=== PATIENT | female | born 1970 | race Caucasian/White ===

== ENCOUNTER 2018-02-03 05:37 | Emergency (ER) | payer OTHER ==
[~2018-02-03] VITALS: Ht 167.6 cm; Wt 99.8 kg
--- NOTE | ~2018-02-03 | EKG ---
[place] [address] [facility] [place] [address] ELECTROCARDIOGRAM REPORT Name: STEVIE HERNANDEZ Room #: 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
[2018-02-03] MEDS ORDERED: TOPAMAX 100 MG100 MG PO (05:55)
[2018-02-03] MEDS ORDERED: ROBAXIN 750 MG750 M1 PO (05:55)
[2018-02-03] MEDS ORDERED: BUSPIRONE HCL10 MG PO (05:56)
[2018-02-03] MEDS ORDERED: WELLBUTRIN SR100 MG PO (05:56)
[2018-02-03] MEDS ORDERED: TRAZODONE HCL100 MG PO (05:57)
[2018-02-03] MEDS ORDERED: ZOLOFT50 MG PO (05:57)
[2018-02-03 07:31] LABS: ABSOLUTE NEUTROPHILS 5.9 thou/uL (1.4-8.2); EOSINOPHILS 2.4 % (0.0-3.0); HEMATOCRIT 39.1 % (37.0-47.0); HEMOGLOBIN 13.6 gm/dL (12.0-15.0); LYMPHOCYTES 24.9 % (24.0-44.0); MCH 31.4 pg (26.0-34.0); MCHC 34.7 g/dL (28.0-37.0); MCV 90.5 fL (80.0-100.0); MONOCYTES 5.5 % (1.0-8.0); PLATELET COUNT 289 thou/uL (150-400); POLYS 66.2 % (36.0-66.0); RBC 4.33 mil/uL (4.20-5.00); RDW 13.1 % (10.5-14.5); WBC 8.9 thou/uL (4.0-11.0)
[2018-02-03 07:34] LABS: CALCIUM 9.6 mg/dL (8.5-10.1); CREATININE 0.8 mg/dL (0.6-1.0); POTASSIUM 4.4 mmol/L (3.5-5.1)
[2018-02-03 07:39] LABS: ALBUMIN 3.5 g/dL (3.4-5.0); TOTAL BILIRUBIN 0.4 mg/dL (<0.1-1.0)
[2018-02-03] MEDS ORDERED: PRILOSEC 20 MG20 MG PO (08:32)
[2018-02-03] MEDS ORDERED: ZOFRAN ODT8 MG PO (08:32)
[2018-02-03] MEDS ORDERED: TRAMADOL 50 MG50 MG PO (08:32)
[2018-02-03 08:50] VITALS: BP 102/51
== END 2018-02-03 08:55 | disposition home or self-care (01) ==
LOC: ER 05:37
PROVIDERS: Emergency Medicine
DX: T18.128A Food in esophagus causing other injury, initial encounter (principal); X58.XXXA Exposure to other specified factors, initial encounter; Y93.89 Activity, other specified; Y92.89 Other specified places as the place of occurrence of the external cause; Y99.8 Other external cause status; K22.2 Esophageal obstruction; Z91.14 Patient's other noncompliance with medication regimen; Z88.0 Allergy status to penicillin; Z88.2 Allergy status to sulfonamides; Z88.1 Allergy status to other antibiotic agents

== ENCOUNTER → 2018-02-22 | Outpatient (CLI) | payer OTHER ==
[~2018-02-22] MED LIST: BUSPIRONE HCL10 MG PO; PRILOSEC 20 MG20 MG PO; ROBAXIN 750 MG750 M1 PO; TOPAMAX 100 MG100 MG PO; TRAMADOL 50 MG50 MG PO; TRAZODONE HCL100 MG PO; WELLBUTRIN SR100 MG PO; ZOFRAN ODT8 MG PO; ZOLOFT50 MG PO
== END ==
LOC: RAD 08:49
DX: S59.901A Unspecified injury of right elbow, initial encounter (principal); M17.12 Unilateral primary osteoarthritis, left knee; W19.XXXA Unspecified fall, initial encounter; Y93.89 Activity, other specified; Y92.89 Other specified places as the place of occurrence of the external cause; Y99.8 Other external cause status

== ENCOUNTER 2018-04-13 13:34 | Emergency (ER) | payer OTHER ==
[~2018-04-13] VITALS: Ht 167.6 cm; Wt 113.4 kg
[2018-04-13 13:59] LABS: URINE BILIRUBIN NEGATIVE (Negative); URINE BLOOD NEGATIVE (Negative); URINE CLARITY CLEAR; URINE COLOR YELLOW; URINE GLUCOSE-RANDOM* NEGATIVE (Negative); URINE KETONES NEGATIVE (Negative); URINE LEUKOCYTES-REFLEX NEGATIVE (Negative); URINE NITRITE-REFLEX NEGATIVE (Negative); URINE PROTEIN (DIPSTICK) NEGATIVE (Negative); URINE SPECIFIC GRAVITY >= 1.030 (1.005-1.035); URINE UROBILINOGEN 0.2 E.U./dl (0.2-1.0)
[2018-04-13 14:48] LABS: HEMATOCRIT 36.8 % (37.0-47.0); HEMOGLOBIN 12.8 gm/dL (12.0-15.0); MCH 31.2 pg (26.0-34.0); MCHC 34.8 g/dL (28.0-37.0); MCV 89.5 fL (80.0-100.0); RBC 4.11 mil/uL (4.20-5.00); WBC 7.6 thou/uL (4.0-11.0)
[2018-04-13 14:54] LABS: ANION GAP 6 mmol/L (7-16); BUN 13 mg/dL (7-18); CALCIUM 8.7 mg/dL (8.5-10.1); CHLORIDE 104 mmol/L (98-107); CO2 28 mmol/L (21-32); GLUCOSE 109 mg/dL (74-106); POTASSIUM 3.6 mmol/L (3.5-5.1); SODIUM 138 mmol/L (136-145)
[2018-04-13 15:03] LABS: ALBUMIN 3.2 g/dL (3.4-5.0); LIPASE 106 U/L (73-393); SGOT 16 U/L (15-37); SGPT 25 U/L (30-65); TOTAL BILIRUBIN 0.3 mg/dL (<0.1-1.0); TOTAL PROTEIN 6.6 g/dL (6.4-8.2); TROPONIN-I <0.06 ng/mL (<0.06)
[2018-04-13] MEDS ORDERED: NORCO 5-325 TA1 EACH PO (17:43)
[2018-04-13 18:00] VITALS: BP 121/79
--- NOTE | 2018-04-13 22:23 | EKG ---
[address] [address] ELECTROCARDIOGRAM REPORT Name: STEVIE HERNANDZE Room #: [facility]P [facility]#: [id number] Admission: 04/13/18 Attend Phys: Discharge: 04/13/18 Date of : 70 Report #: [id number] [facility] RE[facility]: //name// [facility] Test Date: 2018-04-13 Test Time: 14:19:55 Pat Name: STEVIE HERNANDEZ Department: Room: Gender: F Epic Cupid Analyst: : 1970 Requested By: Delia Saavedra Order Number: [id number] MD: Michael Galvan Measurements Intervals [place] Rate: 81 P: 28 MS: 182 QRS: 8 QRSD: 90 T: 1 QT: 380 QTc: 441 Interpretive Statements Sinus rhythm Low voltage, precordial leads RSR' in V1 or V2, probably normal variant Compared to ECG 02/03/2018 05:50:05 RSR' in V1 or V2 now present Electronically Signed On 04-13-2018 22:22:49 PROGRAMMING ENGINEER by Michael Galvan [email or web address] <ELECTRONICALLY SIGNED> By: Michael Galvan MD 04/13/18 2222 1419 1419 Michael Galvan MD /EPI
== END 2018-04-13 18:26 | disposition home or self-care (01) ==
LOC: ER 13:34
PROVIDERS: Student in an Organized Health Care Education/Training Program
DX: R10.84 Generalized abdominal pain (principal); M54.9 Dorsalgia, unspecified; R11.2 Nausea with vomiting, unspecified; Z88.0 Allergy status to penicillin; Z88.2 Allergy status to sulfonamides

== ENCOUNTER 2018-04-18 01:40 | Inpatient (IN) | payer OTHER ==
[~2018-04-18] VITALS: Ht 167.6 cm; Wt 104.3 kg
[~2018-04-18 01:40] MED LIST changes: +NORCO 5-325 TA1 EACH PO
[2018-04-18 01:47] VITALS: BP 152/71
[2018-04-18 02:10] LABS: ABSOLUTE NEUTROPHILS 6.9 thou/uL (1.4-8.2); BASOPHILS 0.7 % (0.0-2.0); EOSINOPHILS 1.9 % (0.0-3.0); HEMATOCRIT 40.9 % (37.0-47.0); HEMOGLOBIN 13.7 gm/dL (12.0-15.0); LYMPHOCYTES 16.7 % (24.0-44.0); MCH 29.9 pg (26.0-34.0); MCHC 33.6 g/dL (28.0-37.0); MCV 89.1 fL (80.0-100.0); MONOCYTES 4.6 % (1.0-8.0); PLATELET COUNT 283 thou/uL (150-400); POLYS 76.1 % (36.0-66.0); RBC 4.59 mil/uL (4.20-5.00); RDW 12.9 % (10.5-14.5); WBC 9.1 thou/uL (4.0-11.0)
[2018-04-18 02:16] LABS: CALCIUM 9.4 mg/dL (8.5-10.1); CREATININE 0.8 mg/dL (0.6-1.0); POTASSIUM 3.8 mmol/L (3.5-5.1)
[2018-04-18 02:22] LABS: ALBUMIN 3.5 g/dL (3.4-5.0); DIRECT BILIRUBIN 0.1 mg/dL (<0.1-0.3); TOTAL BILIRUBIN 0.6 mg/dL (<0.1-1.0); TOTAL PROTEIN 7.4 g/dL (6.4-8.2)
[2018-04-18 03:03] VITALS: BP 132/55
[2018-04-18] MEDS ORDERED: TRAZODONE 150150 M1 PO (03:45)
[2018-04-18] MEDS ORDERED: PROPRANOLOL 4040 M1 PO (03:47)
[2018-04-18 03:50] VITALS: BP 135/69
--- NOTE | 2018-04-18 07:08 | NUR ---
Received pt from ED. Pt has been having abdominal pain since Saturday. It has been progressing worse. She was given morphine in ED but it didnt help as much. We gave her fentanyl and a G.I cocktail but it seems not to be working. She has one episode of emesis. No identified needs at the moment. Will continue to monitor.
[2018-04-18 07:12] VITALS: BP 116/60
[2018-04-18 08:52] LABS: URINE CLARITY CLEAR; URINE COLOR YELLOW; URINE GLUCOSE-RANDOM* NEGATIVE (Negative); URINE PROTEIN (DIPSTICK) NEGATIVE (Negative)
[2018-04-18 08:53] LABS: URINE BILIRUBIN NEGATIVE (Negative); URINE BLOOD NEGATIVE (Negative); URINE KETONES NEGATIVE (Negative); URINE LEUKOCYTES-REFLEX NEGATIVE (Negative); URINE NITRITE-REFLEX NEGATIVE (Negative); URINE UROBILINOGEN 0.2 E.U./dl (0.2-1.0)
--- NOTE | 2018-04-18 14:14 | NUR ---
ASSUMED CARE AT 0700. AXOX4. N/V/AB PAIN. NPO. TX WITH ZOFRAN,FENTANYL. SEEN BY GI. SEEN BY AT BEDSIDE. CHANGES IN MEDICATION MADE. PT WAS TAKEN DOWN TO EGD. STILL C/O NAUSEA. NO EPISODE OF VOMITING NOTED OR RERPOTED AT THIS TIME. WILL CONT TO MONITOR FOR ANY CHANGES OR PROGRESS. IV REPLACED FROM LAC TO LH.
[2018-04-18 14:45] VITALS: BP 108/58
--- NOTE | 2018-04-18 15:51 | NUR ---
PT ADMITTED RELATED TO NAUSEA AND VOMITING. CM REVIEWED CHART AND SPOKE WITH CARE TEAM. CM MET WITH PT AT BEDSIDE THIS DAY. PT IS A&O X4. CM ROLE INTRODUCED. PT INDICATED SHE LIVES IN A HOUSE WITH NO STEPS TO ENTER AND NO STEPS INSIDE. 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 PT INDICATED NO DME OR HH HX. PT INDICATED SHE PLANS TO RETURN HOME ONCE MEDICALLY STABLE. CM TO FOLLOW INDICATED WITH DC PLANNING.
[2018-04-18 20:40] VITALS: BP 105/53
--- NOTE | 2018-04-19 04:01 | NUR ---
PT RESTED ON AND OFF DURING THE NIGHT PT GIVEN IV DILAUDED FOR UPPER ABDOMINAL PAIN PT USED CALL LIGHT EFFECTIVELY NO ISSUES OVERNIGHT.
[2018-04-19 07:41] VITALS: BP 119/59
--- NOTE | 2018-04-19 09:01 | NUR ---
Pt had a slight fever of 100.9. Sponge bath given will monitor closely. Pain medication given Q3.
[2018-04-19 15:24] VITALS: BP 105/52
[2018-04-19 19:01] VITALS: BP 100/44
[2018-04-20 04:08] VITALS: BP 121/88
--- NOTE | 2018-04-20 05:30 | NUR ---
Pt. rested quietly at intervals during the night when checked on during frequent rounds. She has been given po tylenol for low grade fever and pain (see emar) with some relief. Pt. also given iv fentanyl (see emar) for c/o espohagus pain with relief noted. She refused her po meds as she voiced that they hurt going down. No vomiting noted this shift.
[2018-04-20 07:12] VITALS: BP 127/44
[2018-04-20 07:38] LABS: HEMATOCRIT 34.4 % (37.0-47.0); MCH 31.3 pg (26.0-34.0); MCHC 34.8 g/dL (28.0-37.0); MCV 89.9 fL (80.0-100.0); RBC 3.82 mil/uL (4.20-5.00); RDW 12.7 % (10.5-14.5); WBC 6.8 thou/uL (4.0-11.0)
--- NOTE | 2018-04-20 12:51 | NUR ---
Assumed pt care at 0645am. pt was sleeping at this time. pt was a/ox4 but refused po medications, stated it was to painful. Dr Wilkerson requested that Gi come back to reevalutate patient, because symptoms are not improving. will continue to montior patient.
[2018-04-20 15:53] VITALS: BP 107/47
[2018-04-20 20:36] VITALS: BP 181/75
[2018-04-20 20:50] VITALS: BP 125/58
--- NOTE | 2018-04-21 04:54 | NUR ---
Pt. rested quietly at intervals during the night when checked on during frequent rounds. She c/o esophageal pain and has been medicated (see emar) with some relief of pain noted. Refused po meds due to it being too painful to swallow. No c/o nausea and no emesis.
[2018-04-21 05:00] VITALS: BP 128/73
[2018-04-21 09:11] VITALS: BP 132/60
--- NOTE | 2018-04-21 15:06 | PATH ---
[facility] [address] [place] [address] PATHOLOGY RPT PROCEDURE Name: ALEXSANDER HERNANDEZ Room #: 449-I ADM IN M.R.#: [id number] Admission: 04/18/18 Date of : 70 Discharge: Report #: [id number] Path Case #: [id number] [facility] Accession Number: [id number] . 01 Material submitted: . GASTRITIS R/O H. PYLORI . 01 Clinical history: . Pre-OP DX: Nausea with vomiting, dysphagia, Hx of stricture Post-OP DX: Esophagitis, gastritis, esophageal stricture . 02 Diagnosis: Gastric mucosa, gastritis rule out H. pylori, endoscopic biopsy: - Two separate fragments of fibrinopurulent material compatible with ulceration. - Intact fragments showing mild reactive gastropathy with focal intestinal metaplasia. - Negative for atrophy. - Negative for Helicobacter pylori (properly-controlled immunohistochemical stain performed). . (IUV:mml; 04/21/2018) QLM/04/21/2018 . 02 Electronically signed: . Candice Palmer MD, Pathologist NPI- [id number] . 01 Gross description: . Received in formalin labeled "Alexsander Hernandez, BX gastritis, rule out H. pylori," are 5 segments of rouse soft tissue measuring 0.9 x 0.9 x 0.2 cm in aggregate dimensions and ranging from 0.3 to 0.5 cm in maximum dimension. The specimen is submitted entirely in cassette A1. (TSD; 04/18/2018) TOB/TOB . 02 Pathologist provided ICD-10: K25.9, K31.9 . 02 CPT . 871008, N13424 Specimen Comment: A courtesy copy of this report has been sent to Specimen Comment: [phone], . Specimen Comment: Report sent to / DR OWENS Performed at: [address] [facility], [place], [place] [id number] [place] [address] PATHOLOGY RPT PROCEDURE Name: MARYADOLPHFer Room #: 449-I ADM IN .R.#: [id number] Admission: 04/18/18 Date of : [birth year] Discharge: Report #: [id number] Path Case #: [id number] MD Bhupinder Harris MD Phone: [phone] Performed at: [address] [id number] MD Candice Palmer MD Phone: [phone]
--- NOTE | 2018-04-21 16:12 | NUR ---
PATIENT HAS RESTED IN ROOM THROUGH THE DAY. SHE DID HAVE ONE DOSE OF FENTANYL EARLY IN THE SHIFT AND IT HAS HELD HER PAIN THROUGH THE DAY. NEW ORDERS NOTED TO MOVE AHEAD WITH EGD TOMORROW WITH POSSIBLE BOTOX. WILL CONT WITH PLAN OF CARE.
[2018-04-21 20:15] VITALS: BP 111/61; BP 113/63
--- NOTE | 2018-04-22 01:12 | NUR ---
REFUSED ALL PO MEDICATIONS TONIGHT. SHE IS VERY DEMANDING AND CALL OUT FREQUENLTY. COMPLAINS OF ITCHING AT THIS TIME, RECIEVED ORDER TO GIVE HER IV BENEDRYL. SHE AWARE OF IMPENDING EGD THIS AM. SHE REMAINS NPO AT THIS TIME. CAREPLAN REVIEWED. PROGRESSING SLOWLY TOWARD DISCHARGE GOALS.
[2018-04-22 05:40] VITALS: BP 102/65
[2018-04-22 07:27] VITALS: BP 127/71
--- NOTE | 2018-04-22 12:30 | NUR ---
TOWARDS POC PT A/O X4, VSS, AFEBRILE. PAIN, NAUSEA MANAGED BY MEDS. PT ON EGD PROCEDURE AT THIS MOMENT. WILL CONTINUE TO MONITOR.
--- NOTE | 2018-04-22 15:22 | P ---
[facility] [place] [address] PROCEDURE REPORT Name: STEVIE HERNANDEZ Room #: 449-I ADM IN M.R.#: [id number] Admission: 04/18/18 Attend Phys: Stevie Carolina MD Discharge: Date of : 70 Report #: [id number] THIS REPORT FOR: //name// CC: FAM unknown Stevie Carolina MD DATE OF SERVICE: 04/22/2018 PROCEDURE PERFORMED: Upper endoscopy with Botox injections. HISTORY OF PRESENT ILLNESS: The patient is a 47-year-old female with complaints of dysphagia, odynophagia and mid epigastric abdominal pain. She reportedly has a history of possible achalasia diagnosed in [place]. She underwent a Botox injection in the past that was helpful at that time. The benefit lasted approximately 6 months, per the patient. She underwent an upper endoscopy by my partner, Dr. Mendoza, on 04/18/2018. He had mentioned diffuse esophagitis. No obvious stricture was noted. He performed a Savary dilation at that time. Despite this, the patient had continued symptoms of pain and dysphagia and the patient is taking Protonix 40 mg b.i.d. We therefore proceeded with a barium swallow yesterday, which did show a mild narrowing at the GE junction, otherwise negative. Plan today is to proceed with repeat upper endoscopy with Botox injection. DESCRIPTION OF PROCEDURE: The risks and benefits of the procedure were explained to the patient, those risks including but not limited to bleeding, perforation, the risk of sedation. She understood these risks and gave informed consent. Sedation was given using propofol per Anesthesia. Next, using a standard Olympus upper endoscope, the scope was placed in the patient's mouth and advanced under direct vision to the esophagus, stomach and into the second portion of the duodenum. The larynx was normal in appearance. The upper and mid esophagus was normal. In the distal esophagus just above the GE junction, there was an ulceration noted with surrounding erythema. Just distal to this, at the GE junction, the mucosa was normal. There was approximately 2 cm area of normal mucosa at the GE junction and just proximal, before the ulceration was noted. In the stomach, the gastric mucosa was normal in the fundus and body. A few erosions were noted in the antrum. This was noted on endoscopy last Saturday. Previous biopsies were negative for H. pylori. I did not repeat biopsies. The pylorus was normal and patent. The duodenal bulb, first and second portion were all normal. The scope was then brought back up into the distal esophagus and I proceeded with Botox injection just above the GE junction in a 4-quadrant fashion using a total of 100 units, 25 units in each quadrant. No evidence of bleeding after injection. Again, this was distal to the ulceration and inflammation, which was just proximal to this area. At this point, the scope was then withdrawn and the procedure terminated. The patient tolerated the procedure well. [address] [address] PROCEDURE REPORT Name: STEVIE HERNANDEZ Room #: 449-I [facility] IN M.R.#: [id number] Admission: 04/18/18 Attend Phys: Stevie Carolina MD Discharge: Date of : 70 Report #: [id number] IMPRESSION: 1. Ulceration with inflammation in the distal esophagus, suspect this may be secondary to previous dilation. The patient may have had a mucosal tear at that time, which is in the process of healing. I did review the predilation image that was obtained and it did not show ulceration at that time, so again I suspect it may have caused a mucosal tear which is healing. 2. Successful injection of Botox as described, just above the GE junction. This was a normal appearing tissue just distal to the ulceration. 3. Mild erosions in the gastric antrum. 4. Otherwise, normal upper endoscopy. RECOMMENDATIONS: 1. Observe the patient post-procedure and injection of Botox. 2. We will add liquid Carafate at this time. 3. Continue b.i.d. PPI therapy. 4. If symptoms continue, may need to consider repeat upper endoscopy to evaluate full healing of distal esophageal ulceration. Thank you for allowing me to participate in her care. <ELECTRONICALLY SIGNED> By: Jackson Vences MD 04/22/18 1522 1239 1325 Jackson Vences MD /nt
[2018-04-22 16:26] VITALS: BP 122/74
[2018-04-22 19:20] VITALS: BP 111/51
[2018-04-23 04:17] VITALS: BP 101/59
[2018-04-23 09:07] VITALS: BP 101/53
[2018-04-23 10:07] VITALS: BP 101/53
--- NOTE | 2018-04-23 10:37 | NUR ---
DIS PT FOR DC TODAY. IV DC'D. DC PACKET AND MEDSCRIPT PROVIDED. PT ABLE TO TOLERATE BREAKFAST. BUT C/O THAT THE PILL WAS STUCK ON HER THROAT. BUT OTHERWISE NURSE TOLD THAT SHE IS OK.
--- NOTE | 2018-04-24 12:44 | P ---
[facility] [place] [address] PROCEDURE REPORT Name: STEVIE HERNANDEZ Room #: 449-I [facility] IN ..#: [id number] Admission: 04/18/18 Attend Phys: Stevie Carolina MD Discharge: 04/23/18 Date of : 70 Report #: [id number] THIS REPORT FOR: //name// CC: FAM unknown Stevie Carolina BRIEF HISTORY: The patient is a 47-year-old woman with history of recurrent dysphagia. She also complains of epigastric pain. She has been evaluated at [facility] in [place] and was told in the past she had achalasia. She reports numerous esophageal dilations. She reports one treatment session with Botox. She reports intermittent dysphagia, which has worsened recently. PREOPERATIVE DIAGNOSIS: Dysphagia with questionable history of achalasia. POSTOPERATIVE DIAGNOSES: 1. Diffuse esophagitis. 2. Moderate erosive gastritis. MEDICATIONS: Deep sedation with propofol per anesthesia. SPECIMEN: Biopsies of gastritis. ESTIMATED BLOOD LOSS: 3 mL. PROCEDURE: EGD with biopsy. FINDINGS: Prior to propofol sedation, procedure of upper endoscopy and dilation were discussed with the patient as well as potential risks and its complications. She indicates she understands and desires to proceed. DESCRIPTION OF PROCEDURE: With the patient in left lateral decubitus position, the Olympus video endoscope was inserted in the cervical esophagus under direct vision without difficulty. Examination of this organ through its entire length revealed some evidence of desquamation of the esophageal mucosa. However, overall the mucosa was intact and not ulcerated or severely eroded. No mass lesions or strictures were seen. The wound in the esophagus was essentially normal. At the GE junction, it was noted to be tight, but the scope did pass without difficulty into the stomach. A significant hiatus hernia was not seen. The scope was advanced fully into the stomach, was examined on end view as well as retroflexed views. She was noted to have gastritis. There were erosions in the antrum of stomach, but no ulcers were seen. No retained solids or liquids were seen. Upon retroflexion, no mass lesions were seen. Pylorus, duodenal bulb and postbulbar duodenal sweep were all inspected and noted to be unremarkable. At that point, the scope was slowly withdrawn and careful circumferential views were obtained. Biopsies were obtained of the gastritis. We inserted a guidewire through the biopsy channel of the scope into the antrum of the stomach and withdrew the scope over the wire. [address] [address] PROCEDURE REPORT Name: STEVIE HERNANDEZ Room #: 449-I [facility] IN [facility].#: [id number] Admission: 04/18/18 Attend Phys: Stevie Carolina MD Discharge: 04/23/18 Date of : 70 Report #: [id number] Subsequently, she was dilated with passage of a 51-Tunisian Savary dilator over the wire. There was no resistance. DISPOSITION: The patient with history of dysphagia and a questionable diagnosis of achalasia in the past. Esophagus is not markedly dilated, however, that does not preclude the possibility of achalasia. She was dilated with a 51-Tunisian Savary dilator today. We will discuss further with the patient. The review of previous manometry study ____ possibly repeating manometry study may be helpful with regards to a diagnosis of achalasia. If she truly does have achalasia, further intervention such as a myotomy done either laparoscopically or endoscopically may be a consideration. At this time, we will also place her on a PPI. <ELECTRONICALLY SIGNED> By: Deejay Mendoza MD 04/24/18 1244 1328 2255 Deejay Mendoza MD /nt
== END 2018-04-23 10:59 | disposition home or self-care (01) | DRG 391 ==
LOC: ER 01:40 → 4W 02:45 → EROBS 02:45 → 4W 03:21 → ENTRNSPT 04-23 10:44 → EDTRNSPTSTS 04-23 10:47 → 4W 04-23 10:59
PROVIDERS: Internal Medicine; Nurse Practitioner Acute Care; Student in an Organized Health Care Education/Training Program; ADMIT Hospitalist
PROC: 0DB68ZX Excision of Stomach, Via Natural or Artificial Opening Endoscopic, Diagnostic (ICD-10-PCS; principal; 2018-04-18)
PROC: 0D758ZZ Dilation of Esophagus, Via Natural or Artificial Opening Endoscopic (ICD-10-PCS; principal; 2018-04-18)
PROC: 3E0G8GC Introduction of Other Therapeutic Substance into Upper GI, Via Natural or Artificial Opening Endoscopic (ICD-10-PCS; 2018-04-22)
DX: K21.0 Gastro-esophageal reflux disease with esophagitis (principal); K22.11 Ulcer of esophagus with bleeding; K29.71 Gastritis, unspecified, with bleeding; E66.9 Obesity, unspecified; F32.9 Major depressive disorder, single episode, unspecified; F41.9 Anxiety disorder, unspecified; Z90.710 Acquired absence of both cervix and uterus; Z90.49 Acquired absence of other specified parts of digestive tract; Z68.37 Body mass index [BMI] 37.0-37.9, adult; Z79.899 Other long term (current) drug therapy; Z88.0 Allergy status to penicillin; Z88.1 Allergy status to other antibiotic agents; Z88.2 Allergy status to sulfonamides; Z80.1 Family history of malignant neoplasm of trachea, bronchus and lung; Z82.49 Family history of ischemic heart disease and other diseases of the circulatory system; Z80.0 Family history of malignant neoplasm of digestive organs
CPT/HCPCS: 10040; 62110; 62900; 70005